=== PATIENT | male | born 1995 | race Caucasian/White ===

== ENCOUNTER 2018-03-24 22:30 | Emergency (ER) | payer OTHER ==
[~2018-03-24] VITALS: Ht 165.1 cm; Wt 56.2 kg
[2018-03-24 23:13] LABS: CALCIUM 8.9 mg/dL (8.5-10.1); CARBON DIOXIDE 28.2 mmol/L (21-32); CHLORIDE SERUM 102 mmol/L (98-107); CREATININE SERUM 0.9 mg/dL (0.7-1.3); GFR1 > 60 mL/min; GLUCOSE SERUM 117 mg/dL (74-106); POTASSIUM SERUM 3.2 mmol/L (3.5-5.1); SODIUM SERUM 139 mmol/L (136-145)
[2018-03-24 23:18] LABS: ALKALINE PHOSPHATASE 43 U/L (46-116); ALT/SGPT 18 U/L (16-63); AST/SGOT 15 U/L (15-37); BASOPHIL % 1.2 % (0-2); BILIRUBIN TOTAL 0.3 mg/dL (0.20-1.00); PLATELET COUNT 254 x10^3mcL (130-400); RED CELL DISTRIBUTION WIDTH 13.9 % (11.5-14.5); TOTAL PROTEIN, SERUM 7.4 g/dL (6.4-8.2)
[2018-03-24 23:55] VITALS: BP 122/74
== END 2018-03-24 23:55 | disposition short-term general hospital (02) ==
LOC: ED 22:30
PROVIDERS: Specialist
DX: S11.81XA Laceration without foreign body of other specified part of neck, initial encounter (principal); T14.91XA Suicide attempt, initial encounter; X78.8XXA Intentional self-harm by other sharp object, initial encounter; Y93.89 Activity, other specified; Y92.89 Other specified places as the place of occurrence of the external cause; Y99.8 Other external cause status
CPT/HCPCS: 36415; 90715; G0480; J2001; Q9967